=== PATIENT | male | born 1985 | race Caucasian/White ===

== ENCOUNTER 2020-09-03 15:18 | Emergency (ER) | payer MEDICAID ==
[~2020-09-03] VITALS: Ht 172.7 cm; Wt 80.7 kg
--- NOTE | 2020-09-03 15:40 | NUR ---
THE PATIENT BIBS FOR C/O TROUBLE SLEEPING, TINGLING FACE AND LEFT ARM, NAUSEOUS X 3 DAYS ON AND OFF. THE PATIENT IS ALERT AND ORIENETED X4. DENIES PAIN. IN ROOM AIR AND DENIES SOB. RESPIATION REGULAR AND UNLABORED. PATIENT HAS CLEAR SPEECH. NO DEFICIENCIES NOTED. PATIENT IS ATTACHED ON A MONITOR. WILL CONTINUE TO MONITOR THE PATIENT.
--- NOTE | 2020-09-03 16:38 | NUR ---
BLOOD SPECIMEN COLLECTED AND SENT TO THE LAB
[2020-09-03 16:44] LABS: BASOPHILS # (AUTO) 0.1 /CMM (0.0-0.2); BASOPHILS % (AUTO) 0.9 % (0.0-2.0); HEMATOCRIT 51 % (39-51); HEMOGLOBIN 17.5 g/dL (13.5-17.5); LYMPHOCYTES # (AUTO) 1.5 /CMM (0.8-4.8); LYMPHOCYTES % (AUTO) 26.8 % (20.0-44.0); MEAN CORPUSCULAR HGB CONC 34 g/dl (31.0-36.0); MEAN CORPUSCULAR VOLUME 94 fL (80-96); MONOCYTES # (AUTO) 0.6 /CMM (0.1-1.30); MONOCYTES % (AUTO) 11.5 % (2.0-12.0); NEUTROPHILS # (AUTO) 3.3 /CMM (1.8-8.9); NEUTROPHILS % (AUTO) 59.8 % (43.0-81.0); PLATELET COUNT (AUTO) 265 /CMM (150-450); RED BLOOD CELL COUNT(AUTO) 5.42 MIL/uL (4.5-6.0); WHITE BLOOD COUNT (AUTO) 5.6 K/uL (4.3-11.0)
--- NOTE | 2020-09-03 16:49 | NUR ---
CALLED CARDIO DR. BEASLEY TO CALL US BACK.
--- NOTE | 2020-09-03 16:51 | NUR ---
DR. BEASLEY SPEAKING WITH DR. AN
[2020-09-03 17:08] LABS: CALCIUM, SERUM 11.5 mg/dL (8.5-10.1); CARBON DIOXIDE 31 mmol/L (21-32); CHLORIDE 103 mmol/L (98-107); CREATININE 1.5 mg/dL (0.6-1.3); GLUCOSE 88 mg/dL (74-106); SODIUM SERUM 141 mmol/L (136-145); UREA NITROGEN, BLOOD 12 mg/dL (7-18)
--- NOTE | 2020-09-03 17:41 | NUR ---
IV removed. Catheter intact and site benign. Pressure and 4x4 applied to site. No bleeding noted. Patient discharged to home in stable condition. Written and verbal after care instructions given. Patient verbalizes understanding of instruction.
[2020-09-03 17:42] VITALS: BP 135/73
== END 2020-09-03 17:42 | disposition home or self-care (01) ==
LOC: ER 15:27
DX: R00.2 Palpitations (principal); I45.6 Pre-excitation syndrome; Z98.890 Other specified postprocedural states; Z60.2 Problems related to living alone
CPT/HCPCS: 36415; 71045-TC; 80048-TC; 84484-TC; 85025-TC; 85378-TC

== ENCOUNTER 2023-12-19 23:56 | Emergency (ER) | payer MEDICAID, OTHER ==
[~2023-12-19] VITALS: Ht 172.7 cm; Wt 83.9 kg
[2023-12-20] MEDS ORDERED: METO-295 PO (00:42)
[2023-12-20 00:58] VITALS: BP 128/89; TEMP 98; O2SAT 98
== END 2023-12-20 00:59 | disposition home or self-care (01) ==
LOC: ER 23:58
DX: R06.6 Hiccough (principal); R07.89 Other chest pain; Z98.890 Other specified postprocedural states; Z79.899 Other long term (current) drug therapy; Z60.2 Problems related to living alone
CPT/HCPCS: 71045-TC